=== PATIENT | male | born 1990 | race Caucasian/White ===

== ENCOUNTER → 2021-09-02 | Outpatient (CLI) | payer OTHER ==
[~2021-09-02] MED LIST: ISOVUE-300 61% 50ML VIAL As Ordered ONE; LIDOCAINE 1% MDV 20ML VIAL As Ordered ONE; TRIAMCINOLONE ACETONIDE SUSP 40 MG/ML VIAL (J3301) As Ordered ONE
== END ==
LOC: M RADPRO 10:04
PROVIDERS: ATTEND Orthopaedic Surgery
DX: S92.252K Displaced fracture of navicular [scaphoid] of left foot, subsequent encounter for fracture with nonunion (principal)
CPT/HCPCS: 20605; 77002; J3301; Q9967